=== PATIENT | male | born 1965 | race Caucasian/White ===

== ENCOUNTER 2023-05-04 18:01 | Inpatient (IN) | payer OTHER, SELFPAY ==
[2023-05-04 18:43] LABS: #Eosinphils 0.1 thou/uL (0.0-0.7); #Monocytes 0.9 thou/uL (0.11-0.59); #Neutrophils 9.6 thou/uL (1.40-6.50); %Basophils 0.2 % (0.0-1.0); %Eosinophils 0.8 % (0.0-10.0); %Lymphocytes 15.2 % (21.0-51.0); %Monocytes 6.8 % (0.0-10.0); %Neutrophils 76.5 % (42.0-75.0); Hematocrit 39.7 % (42.0-52.0); Hemoglobin 13.8 g/dL (14.0-18.0); Mean Corpuscular HGB CONC 34.8 g/dL (32.0-36.0); Mean Corpuscular Hemoglobin 29.1 pg (27.0-31.0); Mean Corpuscular Volume 83.8 fl (78.0-98.0); Mean Platelet Volume 11.1 fL (7.4-10.4); Platelet Count 244 10x3/uL (130-400); RBC Distribution Width 12.3 % (11.5-14.5); Red Blood Cell (RBC) Count 4.74 mill/uL (4.70-6.10); White Blood Cell (WBC) Count 12.5 10x3/uL (4.8-10.8)
[2023-05-04 18:52] LABS: Prothrombin Time 12.9 sec (12.0-14.7)
[2023-05-04 18:53] LABS: INR-International Normal Ratio 0.9
[2023-05-04 19:00] LABS: Troponin I 0.032 ng/mL (< 0.028)
[2023-05-04] MEDS ORDERED: Aspirin Chewable 81 MG TAB ONE (19:02)
[2023-05-04 19:07] LABS: ALT (SGPT) 10 U/L (8-55); AST (SGOT) 12 U/L (5-34); Albumin 2.8 g/dL (3.5-5.0); Alkaline Phosphatase 63 U/L (40-110); Anion Gap 16 mmol/L (10-20); BUN (Urea Nitrogen) 38 mg/dL (8.4-25.7); Bilirubin, Total 0.4 mg/dL (0.2-1.2); CK (CPK) 64 U/L (30-200); Calc. Creatinine Clearance 0 mL/min (70-130); Calcium 9.1 mg/dL (7.8-10.44); Carbon Dioxide 19 mmol/L (22-29); Chloride 101 mmol/L (98-107); Estimated GFR 21; Globulin 2.9 g/dL (2.4-3.5); Glucose 286 mg/dL (70-105); Potassium 4.8 mmol/L (3.5-5.1); Protein, Total 5.7 g/dL (6.0-8.3); Sodium 131 mmol/L (136-145)
[2023-05-04] MEDS ORDERED: Ondansetron PF 4 MG/2 ML Vial IVP PRN (19:45)
[2023-05-04] MEDS ORDERED: Ondansetron ODT 4 MG TAB SL PRN (19:45)
[2023-05-04] MEDS ORDERED: Glucagon 1 MG/ML KIT IM PRN (19:57)
[2023-05-04] MEDS ORDERED: Dextrose 5% in Water 1,000 ML IV PRN (19:57)
[2023-05-04] MEDS ORDERED: Dextrose 50% Abboject 50 ML SYRINGE SLOW IVP PRN (19:57)
[2023-05-04] MEDS ORDERED: HumaLOG 300 UNITS/3 ML VIAL SC PRN ×2 (19:57)
[2023-05-04] MEDS ORDERED: hydrALAZINE 20 MG/ML VIAL SLOW IVP SCH (21:00)
[2023-05-04 21:14] LABS: Alcohol Less than 10.0 mg/dL (Less than 10)
[2023-05-04 21:16] LABS: Salicylate Less than 8.0 mg/dL (15.0-30.0)
[2023-05-04 21:17] LABS: Acetaminophen Less than 10 mcg/mL (10.0-30.0)
[2023-05-04] MEDS ORDERED: hydrALAZINE 20 MG/ML VIAL ONE (21:43)
[2023-05-04 21:48] LABS: Hemoglobin A1c 11.2 % (4.0-6.0)
[2023-05-05 02:02] LABS: Troponin I 0.043 ng/mL (< 0.028)
[2023-05-05] MEDS: Famotidine 20 MG TAB PO SCH ×2 (04:04→22:14)
[2023-05-05] MEDS: Heparin 5,000 UNITS/ML VIAL SC SCH ×4 (04:04→22:14)
[2023-05-05] MEDS: Atorvastatin Calcium 40 MG TAB PO SCH ×2 (04:04→22:14)
[2023-05-05] MEDS: Fluticasone Propionate Nasal Spray 16 gm Bottle NASAL SCH ×3 (04:04→22:13)
[2023-05-05 05:31] LABS: #Eosinphils 0.2 thou/uL (0.0-0.7); #Monocytes 0.9 thou/uL (0.11-0.59); #Neutrophils 5.8 thou/uL (1.40-6.50); %Basophils 0.3 % (0.0-1.0); %Lymphocytes 37.5 % (21.0-51.0); %Monocytes 7.9 % (0.0-10.0); %Neutrophils 51.9 % (42.0-75.0); Hemoglobin 12.1 g/dL (14.0-18.0); Mean Corpuscular HGB CONC 34.6 g/dL (32.0-36.0); Mean Corpuscular Hemoglobin 29.3 pg (27.0-31.0); Mean Corpuscular Volume 84.7 fl (78.0-98.0); Mean Platelet Volume 10.1 fL (7.4-10.4); Platelet Count 317 10x3/uL (130-400); RBC Distribution Width 12.4 % (11.5-14.5); Red Blood Cell (RBC) Count 4.13 mill/uL (4.70-6.10); White Blood Cell (WBC) Count 11.2 10x3/uL (4.8-10.8)
[2023-05-05 05:57] LABS: ALT (SGPT) 10 U/L (8-55); AST (SGOT) 9 U/L (5-34); Albumin 2.7 g/dL (3.5-5.0); Alkaline Phosphatase 63 U/L (40-110); Anion Gap 12 mmol/L (10-20); BUN (Urea Nitrogen) 40 mg/dL (8.4-25.7); Bilirubin, Total 0.2 mg/dL (0.2-1.2); Calc. Creatinine Clearance 30 mL/min (70-130); Calcium 8.4 mg/dL (7.8-10.44); Carbon Dioxide 24 mmol/L (22-29); Cardiac Risk 8.5 (Less than 4.5); Chloride 102 mmol/L (98-107); Cholesterol 341 mg/dl (< 200 Desired); Estimated GFR 22; Globulin 2.5 g/dL (2.4-3.5); Glucose 294 mg/dL (70-105); HDL Cholesterol 40 mg/dL (>60 Neg Risk); Protein, Total 5.2 g/dL (6.0-8.3); Sodium 134 mmol/L (136-145); Triglycerides 486 mg/dL (Less than 150)
[2023-05-05 08:10] LABS: Amphetamine Not Detected (NotDetected); Barbiturates Screen Not Detected (NotDetected); Benzodiazepine Screen Not Detected (NotDetected); Cocaine Metabolite Screen Not Detected (NotDetected); Methadone Not Detected (NotDetected); Methamphetamine Not Detected (NotDetected); Opiate Screen Not Detected (NotDetected); Oxycodone Screen Not Detected (NotDetected); Phencyclidine (PCP) Not Detected (NotDetected); THC/Cannabinoid Screen Not Detected (NotDetected); Tricyclic Screen Not Detected (NotDetected)
[2023-05-05 08:11] LABS: Bilirubin Negative (Negative); Blood, Urine 1+ (Negative); Clarity Clear (Clear); Glucose, Urine (Dipstick) Greater than 1000 mg/dL (Negative); Ketone, Urine Negative (Negative); Leukocyte Negative Leu/uL (Negative); Nitrite Negative (Negative); Protein, Urine (Dipstick) 600 mg/dL (Neg-Trace); RBC/HPF 0-3 HPF (0-3); Specific Gravity, Urine 1.019 (1.002-1.036); Squamous Epithelial 0-3 HPF (0-3); Urobilinogen Normal mg/dL (Less than 2); WBC/HPF 0-3 HPF (0-3)
[2023-05-05 08:16] LABS: Bacteria/HPF 1+ HPF (None Seen)
[2023-05-05 08:26] LABS: Creatinine, Urine 83.2 mg/dL (63-166)
[2023-05-05] MEDS ORDERED: hydrALAZINE 25 MG TAB PO SCH (09:00)
[2023-05-05] MEDS: Aspirin 81 mg Enteric Coated Tablet PO SCH (09:03)
[2023-05-05] MEDS ORDERED: Sodium Chloride 0.9% 1,000 ML IV SCH (11:30)
[2023-05-05 15:49] LABS: Cardiac Risk 8.2 (Less than 4.5); Cholesterol 335 mg/dl (< 200 Desired); HDL Cholesterol 41 mg/dL (>60 Neg Risk); Triglycerides 569 mg/dL (Less than 150)
[2023-05-05] MEDS ORDERED: hydrALAZINE 20 MG/ML VIAL SLOW IVP PRN (16:17)
[2023-05-05] MEDS ORDERED: Acetaminophen 500 MG TAB PO PRN (23:39)
[2023-05-05] MEDS ORDERED: Acetaminophen 650 MG Suppository PR PRN (23:39)
[2023-05-05] MEDS ORDERED: Acetaminophen 325 MG TAB PO PRN (23:41)
[2023-05-06] MEDS ORDERED: Empagliflozin 10 MG TAB PO SCH (09:00)
[2023-05-06] MEDS: Fluticasone Propionate Nasal Spray 16 gm Bottle NASAL SCH (09:53)
[2023-05-06] MEDS: Heparin 5,000 UNITS/ML VIAL SC SCH (09:56)
[2023-05-06] MEDS: Aspirin 81 mg Enteric Coated Tablet PO SCH (09:56)
[2023-05-06 11:48] VITALS: BP 170/91; TEMP 96.7
[2023-05-06 11:57] VITALS: BMI 26.9
== END 2023-05-06 13:00 | disposition home or self-care (01) | DRG 65 ==
LOC: ERS 18:01 → ERHOLD 19:41 → 2SE 23:06 → OBSVTOIN 05-05 10:02
PROVIDERS: ADMIT Internal Medicine; ATTEND Internal Medicine Critical Care Medicine
DX: I63.9 Cerebral infarction, unspecified (principal); E87.1 Hypo-osmolality and hyponatremia; N17.9 Acute kidney failure, unspecified; N18.4 Chronic kidney disease, stage 4 (severe); E11.22 Type 2 diabetes mellitus with diabetic chronic kidney disease; I12.9 Hypertensive chronic kidney disease with stage 1 through stage 4 chronic kidney disease, or unspecified chronic kidney disease; E11.65 Type 2 diabetes mellitus with hyperglycemia; F17.220 Nicotine dependence, chewing tobacco, uncomplicated; J32.2 Chronic ethmoidal sinusitis; E78.5 Hyperlipidemia, unspecified; Z90.49 Acquired absence of other specified parts of digestive tract; Z98.890 Other specified postprocedural states; Z89.432 Acquired absence of left foot
CPT/HCPCS: 36415; 36416; 70450; 70551; 71045; 76770; 80053; 80061; 80306; 80307; 81001; 82550; 82570; 83036; 83880; 84145; 84156; 84300; 84443; 84484; 84540; 85025; 85610; 85730; 93005; 93306; G0378; J0360; J1644; J1815; J7050